=== PATIENT | female | born 1970 | race Caucasian/White ===

== ENCOUNTER 2020-04-18 07:38 | Day surgery (SDC) | payer OTHER, SELFPAY ==
--- NOTE | 2020-04-16 13:55 | P.CONAN_ITS ---
Documented by User: Susan Montiel 04/16/20 13:56 HPI - Anesthesia Eval Consult details Narrative: 49yo F for Colonoscopy [facility] Past Medical History Medical History (Updated 04/18/20 @ 08:42 by Bhumi Salazar) GERD (gastroesophageal reflux disease) Increased BMI Joint ache Seasonal allergies Surgical History Surgical History History of esophagogastroduodenoscopy (EGD) Hx of colonoscopy Social History Social History Smoking Status: Never smoker Use of substances other than those prescribed or required for medical reasons: No Have you been hit, kicked, punched, or otherwise hurt by someone within the past year? If so, by whom?: No Advance Directives: No Advance Directives Information Provided: Yes Meds Allergies Allergy/AdvReac Type Severity Reaction Status Date / Time azithromycin Allergy Unknown Verified 04/18/20 07:59 [From Zithromax Z-Todd] loratadine [From Claritin] Allergy Unknown Verified 04/18/20 07:59 prednisone Allergy Unknown Verified 04/18/20 07:59 Home Medications Medication Instructions Recorded Confirmed Type magnesium 250 mg PO DAILY 04/14/20 04/14/20 History omeprazole magnesium [Prilosec OTC] 20 mg PO BID 04/14/20 04/14/20 History Exam Exam Date and Time: April 16, 2020 1355 Assessment and Plan Assessment Anesthesia Assessment: Chart Reviewed Documented by User: Bhumi Salazar 04/18/20 08:45 [facility] Past Medical History Medical History (Updated 04/18/20 @ 08:42 by Bhumi Salazar) GERD (gastroesophageal reflux disease) Increased BMI Joint ache Seasonal allergies Family History Family history of problems with anesthesia: No Surgical History Surgical History History of esophagogastroduodenoscopy (EGD) Hx of colonoscopy History of Problems with Anesthesia: No Social History Social History Smoking Status: Never smoker Use of substances other than those prescribed or required for medical reasons: No Have you been hit, kicked, punched, or otherwise hurt by someone within the past year? If so, by whom?: No Advance Directives: No Advance Directives Information Provided: Yes Meds Allergies Allergy/AdvReac Type Severity Reaction Status Date / Time azithromycin Allergy Unknown Verified 04/18/20 07:59 [From Zithromax Z-Todd] loratadine [From Claritin] Allergy Unknown Verified 04/18/20 07:59 prednisone Allergy Unknown Verified 04/18/20 07:59 Home Medications Medication Instructions Recorded Confirmed Type magnesium 250 mg PO DAILY 04/14/20 04/14/20 History omeprazole magnesium [Prilosec OTC] 20 mg PO BID 04/14/20 04/14/20 History Exam Height,Weight and Vital Signs: Ht. 5'5 Wt. 190# Vital Signs Temp Pulse Resp BP Pulse Ox 04/18/20 08:08 97.8 F 78 18 117/47 L 98 Airway Mallampati Class: II TM Dist: >3cm Neck ROM: Full Loose/Missing/Broken Teeth: No Heart: RRR Lungs: CTAB Assessment and Plan Assessment Anesthesia Assessment: Anesthesia Plan Discussed and Chart Reviewed Final Anesthetic Review NPO: Yes ASA Class: II Final Preanesthetic Review: No Changes in Pt Med Stat, Meds/Allgs Chart Reviewed, Consent Obtained/Reviewed and Anes Risks/Benef Reviewed Patient Risk: Low Procedure Risk: Low Assessment/Block/Sedation in SS: Assess/Block/Sedation-SS Anesthetic Plan Anesthetic Plan: MAC: Disposition: Standard PACU
[2020-04-18 08:08] VITALS: BP 117/47; PULSE 78; RESP 18; TEMP 36.6; O2SAT 98
[2020-04-18] MEDS: Lactated Ringers 1,000 ML 100 ML IVCONT (08:24)
[2020-04-18 08:41] VITALS: BMI 31.6
--- NOTE | 2020-04-18 08:53 | MHC.SHP ---
Pre-Procedural Eval Section B Chief Complaint: screening,hx of colonic polyps Details of Present Illness: see H&P Relevant Family History (Specify if Yes): Yes Relevant Social History: None Present Medications: None Medical History: No relevant PMH History of Previous Operations: No relevant previous surgery Allergies: Allergies Allergy/AdvReac Type Severity Reaction Status Date / Time azithromycin Allergy Unknown Verified 04/18/20 07:59 [From Zithromax Z-Todd] loratadine [From Claritin] Allergy Unknown Verified 04/18/20 07:59 prednisone Allergy Unknown Verified 04/18/20 07:59 Review of Systems Sugical H&P ROS: Negative: Constitution, Cardiovascular, Respiratory, Neurological, Psychiatric, Hem-Onc, Allergic/Immunologic, Gastrointestinal, Genitourinary, Musculoskeletal, Integumentary, Endocrine and Eyes/Ears/Nose/Throat Exam Surgical H&P Exam: Normal: HEENT, Normal: Heart, Normal: Lungs, Normal: Extremities, Normal: Abdomen, Normal: Skin and Normal: Neurological Plan Diagnosis/Plan: Unchanged I have reviewed the history and physical and performed a pertinent physical examination on my patient. No changes have occurred unless specified.
--- NOTE | 2020-04-18 08:54 | PM.OP ---
Brief Operative Note Date of Service: 04/18/20 Pre-op diagnosis: screening Post-op diagnosis: same Procedure: colonoscopy Surgeon: Brad Bello Anesthesia: MAC Estimated blood loss (mL): 0 Pathology: other (polyp 25cm) Condition: stable Disposition: PACU
[2020-04-18 08:56] VITALS: BP 109/61; PULSE 78; RESP 14; TEMP 36.6; O2SAT 100
--- NOTE | 2020-04-18 09:10 | OP_ITS ---
SURGEON: Brad eBllo MD INDICATIONS: Colon cancer screening and family history of colon cancer and polyps. PREOPERATIVE DIAGNOSIS: POSTOPERATIVE DIAGNOSIS: PROCEDURE PERFORMED: Colonoscopy to the terminal ileum with snare polypectomy. ESTIMATED BLOOD LOSS: COMPLICATIONS: ANESTHESIA: ASSISTANTS: SPECIMENS: MEDICATIONS: Monitored anesthesia care. DESCRIPTION OF PROCEDURE: History and physical was performed. The risks and benefits of the procedure were explained to the patient. Informed consent was obtained. The patient was placed in the left lateral decubitus position. A digital rectal exam was performed and was found to be normal. The Olympus pediatric video colonoscope was introduced into the rectum and advanced to the cecum without difficulty. The cecum was identified by transillumination, palpation, and identification of ileocecal valve. Examination was performed and the scope was removed. She tolerated the procedure well and was taken to recovery area in stable condition. FINDINGS: The terminal ileum was normal. The visualized colonic mucosa was normal. The quality of the prep was good. At 25 cm from the anal verge was a 6 mm polyp which was removed with a snare and recovered via suction. No other polyps were identified. Retroflexed examination showed small internal hemorrhoids. There were few diverticula in the sigmoid. IMPRESSION: Colon polyp. RECOMMENDATION: Follow up with the biopsy results. MD SCAR Reynaga/HARDYL / [id number] MTDD
[2020-04-18 09:11] VITALS: BP 120/70; PULSE 78; RESP 20; TEMP 36.6; O2SAT 100
--- NOTE | 2020-04-18 09:55 | HO.POSTANES ---
Post Anesthesia Evaluation Post Anesthesia Evaluation Vital Signs: Vital Signs Temp Pulse Resp BP Pulse Ox 04/18/20 09:11 97.9 F 78 20 120/70 100 04/18/20 08:56 97.9 F 78 14 109/61 100 04/18/20 08:08 97.8 F 78 18 117/47 L 98 Anesthesia: Monitored Mental Status: Awake Pain Control: Satisfactory Nausea/Vomiting: None Hydration: Adequate Anesthesia-Related Issues: No Anes. Related Issues
== END 2020-04-18 09:24 ==
LOC: HO.SSS 07:38
PROVIDERS: PCP Internal Medicine Geriatric Medicine; Visit Provider Internal Medicine Gastroenterology
PROC: 0DJD8ZZ Inspection of Lower Intestinal Tract, Via Natural or Artificial Opening Endoscopic (ICD-10-PCS; CPT 45378; principal; 2020-04-18 08:50)
DX: Z12.11 Encounter for screening for malignant neoplasm of colon (principal); K63.5 Polyp of colon; K57.30 Diverticulosis of large intestine without perforation or abscess without bleeding; K64.8 Other hemorrhoids; Z80.0 Family history of malignant neoplasm of digestive organs; Z83.71 Family history of colonic polyps; Z88.8 Allergy status to other drugs, medicaments and biological substances
CPT/HCPCS: 45385; 88305